=== PATIENT | female | born 1985 | race Caucasian/White ===

== ENCOUNTER → 2023-06-04 09:30 | Outpatient (REF) | payer BC, SELFPAY | LOC: PNTC 09:30 | PROVIDERS: ATTENDING PHYSICIAN Obstetrics & Gynecology | DX: O09.529 Supervision of elderly multigravida, unspecified trimester (principal); O99.210 Obesity complicating pregnancy, unspecified trimester | CPT/HCPCS: 76816 ==

== ENCOUNTER → 2023-06-18 09:28 | Outpatient (REF) | payer BC, SELFPAY | LOC: PNTC 09:28 | PROVIDERS: ATTENDING PHYSICIAN Obstetrics & Gynecology | DX: O09.529 Supervision of elderly multigravida, unspecified trimester (principal); O99.210 Obesity complicating pregnancy, unspecified trimester | CPT/HCPCS: 59025; 76815 ==

== ENCOUNTER → 2023-06-25 09:19 | Outpatient (REF) | payer BC, SELFPAY | LOC: PNTC 09:19 | PROVIDERS: ATTENDING PHYSICIAN Obstetrics & Gynecology | DX: O09.529 Supervision of elderly multigravida, unspecified trimester (principal); O99.210 Obesity complicating pregnancy, unspecified trimester | CPT/HCPCS: 59025; 76815 ==

== ENCOUNTER → 2023-07-02 09:25 | Outpatient (REF) | payer BC, SELFPAY | LOC: PNTC 09:25 | PROVIDERS: ATTENDING PHYSICIAN Obstetrics & Gynecology | DX: O09.529 Supervision of elderly multigravida, unspecified trimester (principal); O99.210 Obesity complicating pregnancy, unspecified trimester | CPT/HCPCS: 59025; 76816 ==

== ENCOUNTER → 2023-07-09 09:21 | Outpatient (REF) | payer BC, SELFPAY | LOC: PNTC 09:21 | PROVIDERS: ATTENDING PHYSICIAN Obstetrics & Gynecology | DX: O99.210 Obesity complicating pregnancy, unspecified trimester (principal); O09.529 Supervision of elderly multigravida, unspecified trimester | CPT/HCPCS: 59025; 76815 ==

== ENCOUNTER → 2023-07-16 09:22 | Outpatient (REF) | payer BC, SELFPAY | LOC: PNTC 09:22 | PROVIDERS: ATTENDING PHYSICIAN Obstetrics & Gynecology | DX: O09.529 Supervision of elderly multigravida, unspecified trimester (principal); O99.210 Obesity complicating pregnancy, unspecified trimester | CPT/HCPCS: 59025; 76815 ==

== ENCOUNTER 2023-07-17 04:01 | Inpatient (IN) | payer BC, SELFPAY ==
[2023-07-17 04:29] VITALS: BMI 40.8
[2023-07-17 04:30] VITALS: BP 112/75
[2023-07-17] MEDS: LR 1000 IV ×3 (05:03→11:45)
[2023-07-17 05:16] LABS: % Basophils 0.3 % (0-2); % Immature Granulocytes 1.3 % (0-0.5); % Lymphocytes 21.5 % (20.5-51.1); % Monocytes 5.9 % (1.7-9.3); Absolute Immature Granulocytes 0.1 10^3/uL (0-0.05); Absolute Lymphocytes 2.1 10^3/uL (1.2-3.4); Absolute Monocytes 0.6 10^3/uL (0.1-0.6); Absolute Neutrophils 6.9 10^3/uL (1.4-6.5); Hematocrit 32.6 % (37.0-47.0); Mean Corp Hgb Conc. 33.7 g/dL (33.0-37.0); Mean Corpuscular Hgb 27.6 pg (27.0-31.0); Mean Corpuscular Volume 81.7 fL (81.0-99.0); Mean Platelet Volume 9.8 fL (7.4-10.4); Nucleated Red Blood Cells % 0 %; Platelet Count 245 10^3/uL (130-400); Red Blood Cell Count 3.99 10^6/uL (4.20-5.40); Red Cell Dist. Width 16.8 % (11.5-14.5); White Blood Cell Count 9.7 10^3/uL (4.8-10.8)
[2023-07-17] MEDS: SUBLIMAZE 100 MCG EPIDURAL (07:43)
[2023-07-17] MEDS: FENTANYL/BUPIVACAINE 100 EPIDURAL (07:44)
[2023-07-17] MEDS: PITOCIN 30 UNITS/NSS 500 ML IV ×2 (09:30→12:47)
[2023-07-17] MEDS: MOTRIN 600 MG PO ×2 (15:51→21:35)
[2023-07-18] MEDS: TYLENOL 650 MG PO ×2 (02:21→07:50)
[2023-07-18 04:51] LABS: Hematocrit 33.6 % (37.0-47.0); Hemoglobin 11.3 g/dL (12.0-16.0)
[2023-07-18] MEDS: PRENATAL PLUS 1 TABLET PO (07:50)
[2023-07-18] MEDS: MOTRIN 600 MG PO ×2 (14:00→21:11)
[2023-07-19] MEDS: TYLENOL 650 MG PO (06:49)
[2023-07-19] MEDS: MOTRIN 600 MG PO (06:49)
[2023-07-19] MEDS: PRENATAL PLUS 1 TABLET PO (08:06)
[2023-07-20 12:14] LABS: Syphilis/T. pallidum Ab Reflex Negative (Negative)
== END 2023-07-19 11:32 | disposition home or self-care (01) | DRG 807 ==
LOC: LDRP 04:01
PROVIDERS: Obstetrics & Gynecology; ADMITTING PHYSICIAN Obstetrics & Gynecology; FAMILY PHYSICIAN Internal Medicine
PROC: 0KQM0ZZ Repair Perineum Muscle, Open Approach (ICD-10-PCS; 2023-07-17)
PROC: 10E0XZZ Delivery of Products of Conception, External Approach (ICD-10-PCS; 2023-07-17)
DX: O76 Abnormality in fetal heart rate and rhythm complicating labor and delivery (principal); Z37.0 Single live birth; Z3A.38 38 weeks gestation of pregnancy; O70.1 Second degree perineal laceration during delivery
CPT/HCPCS: 36415; 85014; 85018; 85025; 86780; 86850; 86900; 86901